=== PATIENT | female | born 1990 | race African-American/Black ===

== ENCOUNTER 2018-10-14 19:36 | Emergency (ER) | payer BC ==
[~2018-10-14] VITALS: Ht 175.3 cm; Wt 68.0 kg
[2018-10-14 19:45] VITALS: BP 120/65
== END 2018-10-14 20:30 | disposition home or self-care (01) ==
LOC: ER 19:36
DX: M72.2 Plantar fascial fibromatosis (principal); M79.671 Pain in right foot; G89.29 Other chronic pain